=== PATIENT | female | born 1995 | race African-American/Black ===

== ENCOUNTER 2019-03-25 03:52 | Emergency (ER) | payer SELFPAY ==
[~2019-03-25] VITALS: Ht 167.6 cm; Wt 72.6 kg
[2019-03-25 03:53] VITALS: BP 117/79
--- NOTE | 2019-03-25 03:58 | Emergency Room Report ---
History of Present Illness General Chief Complaint: Medical Clearance Source: Patient Present Illness HPI 23-year-old female history of asthma taking montelukast and albuterol presents for medical clearance she has no complaints states she feels fine and wants to leave. Patient History Past Medical History: see triage record Last Menstrual Period: 03/22/19 Now: No Reviewed Nursing Documentation: PMH: Agreed; PSxH: Agreed Nursing Documentation-PMH Past Medical History: No History, Except For Hx Asthma: Yes Review of Systems All Other Systems: negative except mentioned in HPI Physical Exam Vital Signs Date Time Temp Pulse Resp B/P (MAP) Pulse Ox O2 Delivery O2 Flow Rate FiO2 03/25/19 03:53 98.1 113 19 117/79 (92) 98 General Appearance: well appearing, no apparent distress Head: normocephalic, atraumatic Eyes: bilateral eye PERRL, bilateral eye EOMI ENT: hearing grossly normal, normal voice Neck: full range of motion, supple Respiratory: no respiratory distress, speaking full sentences Cardiovascular #1: no edema, no gallop, tachycardia Neurologic: alert, normal gait Psychiatric: anxious Skin: no rash Medical Decision Making Diagnostic Impression: Primary Impression: Medical clearance for incarceration ER Course 23-year-old female presents for clearance for incarceration Patient states she feels fine and wants to leave. Patient's heart rates elevated however she is very anxious, low suspicion for acute pathology patient is mostly without any further examination. Last Vital Signs Date Time Temp Pulse Resp B/P (MAP) Pulse Ox O2 Delivery O2 Flow Rate FiO2 03/25/19 03:53 98.1 113 19 117/79 (92) 98 Disposition: D/C TO LAW ENFORCEMENT IN [facility] Condition: Stable Referrals: [facility]. [facility] Departure Forms: Halfway Clearance Patient Instructions: Asthma, Adult, [id number], Medical Screening Exam Additional Instructions: The patient was provided with discharge instructions, notified to follow-up with a primary care doctor and or specialist in the next 24-48 hours, and to return to the ED if they have worsening of their symptoms. Please note that this report is being documented using DRAGON technology. This can lead to erroneous entry secondary to incorrect interpretation by the dictating instrument. Gal Luis MD Mar 25, 2019 03:58
[2019-03-25 04:02] VITALS: BP 117/79
--- NOTE | 2019-03-25 04:06 | NUR ---
ED Nurse Note: Patient walked in to ER with [employer] hands cuffs on, for medical clearance. Stated that does not have complains. AAO x4, VSS at this time.
--- NOTE | 2019-03-25 04:08 | NUR ---
ED Nurse Note: Pt cleared by health care Provider for discharge. DC instructions/prescription was given and explained to pt and verbalized understanding of teachings. All medical deviecs such as ID band removed. Pt is AAO x4, ambulatory and left with all personal belongings.
== END 2019-03-25 04:00 ==
LOC: EMR 04:00
DX: J45.909 Unspecified asthma, uncomplicated (principal)
CPT/HCPCS: 99281